=== PATIENT | female | born 1965 | race Caucasian/White ===

== ENCOUNTER 2020-01-17 09:44 | Emergency (ER) | payer OTHER, SELFPAY ==
[2020-01-17 09:45] VITALS: BP 139/90; PULSE 90; RESP 14; TEMP 36.9; O2SAT 100
--- NOTE | 2020-01-17 10:09 | DI.RAD.S_ITS ---
PROCEDURE: XR CHEST 1V INDICATIONS: chest pain TECHNIQUE: One view of the chest was acquired. COMPARISON: None. FINDINGS: Surgical changes and devices: None. Lungs and pleura: Lungs are clear. No pleural effusions or pneumothorax. Mediastinum: Mediastinal contours appear normal. Heart size is normal. Bones and chest wall: No suspicious bony lesions. Mild levoconvex scoliotic curvature is noted. Overlying soft tissues appear unremarkable. IMPRESSION: Portable chest within normal limits. Dictated by: Tay Meza M.D. on 01/17/2020 at 9:29 Approved by: Tay Meza M.D. on 01/17/2020 at 9:30
--- NOTE | 2020-01-17 10:13 | ED_ITS ---
HPI - URI/Sore Throat General Chief Complaint: Upper Respiratory Symptoms Stated Complaint: dry throat x 1 month, pain in neck Time Seen by Provider: 01/17/20 09:49 Source: patient Mode of arrival: Ambulatory Limitations: no limitations History of Present Illness HPI Narrative: Patient is a 54-year-old female who presents with a variety of symptoms. She has had an ongoing sore throat and dry throat for the last 1 month she thinks has gotten progressively worse over the last day or so. Also for the last week she has had arm heaviness more on the left than the right symptoms have come and gone. She feels sometime she has burning in her chest that goes up to her jaw. She denies any shortness of breath with exertion no cough. Last night she had temperature 100.8?. She has nausea but no vomiting. She has significant decrease in appetite secondary to her nausea. Her dad was diagnosed with COVID. 1 month ago he had a routine test for colonoscopy test came back positive but he was retested and it was negative. Everyone else at that time was tested and negative. No other exposure to cover that she knows of. MD Complaint: fever, cough and sore throat Onset (ago): day(s) Related Data Allergies Allergy/AdvReac Type Severity Reaction Status Date / Time Sulfa (Sulfonamide Allergy Unknown Verified 01/17/20 10:11 Antibiotics) Review of Systems Review of Systems ROS Unobtainable: All systems reviewed & are unremarkable except as noted in HPI and below Constitutional Constitutional: Reports anorexia, Reports fatigue, Reports fever(s), Reports headache(s) and Reports poor appetite Eyes Eyes: Denies change in vision, Denies eye discharge, Denies irritation and Denies loss of vision ENT Ears, Nose, Mouth, and Throat: Reports as per HPI, Reports dry mouth, Reports headache(s) and Denies hoarseness Cardiovascular Cardiovascular: Reports chest pain (Burning), Denies irregular heart rhythm, Denies lightheadedness, Denies palpitations, Denies dyspnea, Denies dyspnea on exertion and Denies orthopnea Respiratory Respiratory: Denies cough, Denies dyspnea, Denies dyspnea on exertion and Denies wheezing Gastrointestinal Gastrointestinal: Denies abdominal pain, Denies change in bowel habits, Denies diarrhea, Reports nausea and Denies vomiting Musculoskeletal Musculoskeletal: Denies arthralgias and Reports myalgias Integumentary/Breasts Skin/Breast: Denies pruritus, Denies erythema, Denies rash and Denies wounds Neurologic Neurologic: Reports headache(s) and Denies loss of vision Endocrine Endocrine: Reports fatigue and Denies palpitations Allergic/Immunologic Allergic/Immunologic: Denies wheezing Patient History Medical History Patient denies medical problems (Acute) Surgical History H/O: hysterectomy (Acute) Social History Smoking Status: Former smoker Smoking Status: Former smoker alcohol intake frequency: 0-2 drinks per day Substance Use Type: does not use Exam Initial Vital Signs Initial Vital Signs: Vital Signs Temperature 98.4 F 01/17/20 09:45 Pulse Rate 90 01/17/20 09:45 Respiratory Rate 14 01/17/20 09:45 Blood Pressure 139/90 01/17/20 09:45 Pulse Oximetry 100 01/17/20 09:45 GENERAL: Well-appearing, well-nourished and in no acute distress. HEENT: Head atraumatic,EOMI, pupils reactive, face symmetric, moist mucous membranes PHARYNX: No erythema, no tonsillar exudate, no cervical lymphadenopathy CARDIOVASCULAR: Regular rate and rhythm without murmurs, rubs or gallops. RESPIRATORY: Breath sounds equal bilaterally, no wheezes rales or rhonchi. ABDOMEN: Soft, nontender. Normoactive bowel sounds all 4 quadrants. No guarding or rebound. EXTREMITIES: Normal range of motion, no clubbing or edema. Neurovascularly intact NEUROLOGICAL: Alert and oriented x4.Normal gait and speech. SKIN: Warm, dry, no laceration, no petechiae, no rashes or lesions. Course Orders Ordered: ED Orders 01/17/20 10:09 XR chest 1V Stat 01/17/20 10:23 EKG-12 Lead Stat 01/17/20 11:10 Complete Blood Count AUTO DIFF Stat Comprehensive Metabolic Panel Stat Lipase Stat Troponin & CK Cardiac Panel Stat 01/17/20 12:19 COVID19 -ED/INPAT/OR/L&D Stat Discontinued Medications Sodium Chloride (Normal Saline 0.9%) 1,000 mls @ 150 mls/hr IV CONT SARAH Last Infusion: 01/17/20 13:09 Dose: 0 mls/hr Documented by: Admin: 01/17/20 11:17 Dose: 150 mls/hr Documented by: KADEN Ondansetron HCl (Zofran) 4 mg IV NOW ONE Stop: 01/17/20 10:10 Last Admin: 01/17/20 11:17 Dose: 4 mg Documented by: KADEN Vital Signs Vital signs: Vital Signs - 8 hr 01/17/20 09:45 01/17/20 10:30 01/17/20 11:00 Temperature 98.4 F Pulse Rate 90 74 72 Respiratory Rate 14 21 22 Blood Pressure 139/90 113/72 106/71 Pulse Oximetry 100 100 99 MDM - URI/Sore Throat Lab Data Attestation: I reviewed the patient's lab results. Result diagrams: 01/17/20 11:10 01/17/20 11:10 Labs: Lab Results 01/17/20 01/17/20 01/17/20 Range/Units 11:10 11:10 12:19 WBC 5.1 (4.5-11.0) X10^3/uL RBC 4.20 (4.0-5.2) X10^6/uL Hgb 12.2 (12.0-16.0) g/dL Hct 37.4 (36-46) % MCV 89.2 (80-100) fL MCH 29.1 (26-34) PG MCHC 32.6 (30-36) % RDW 13.1 (11.6-14.8) % Plt Count 414 H (150-400) X10^3/uL Neut % (Auto) 54.2 (50-75) % Lymph % (Auto) 36.4 (25-40) % [place] % (Auto) 7.9 (3-14) % Eos % (Auto) 0.9 L (2-4) % Baso % (Auto) 0.6 (0-2) % Neut # (Auto) 2800 (6151-4548) /uL Lymph # (Auto) 1900 (6098-3525) /uL [place] # (Auto) 400 (0-900) /uL Eos # (Auto) 0 (0-450) /uL Baso # (Auto) 0 (0-100) /uL Sodium 137 (137-145) mmol/L Potassium 4.3 (3.4-5.1) mmol/L Chloride 102 (98-107) mmol/L Carbon Dioxide 32 (22-32) mmol/L BUN 10 (7-17) mg/dL Creatinine 0.62 (0.52-1.04) mg/dL Estimated GFR > 60.0 (>60) mL/min BUN/Creatinine Ratio 16.1 (6-22) Glucose 96 (70-100) mg/dL Calcium 9.7 (8.4-10.2) mg/dL Total Bilirubin 0.7 (0.2-1.3) mg/dL AST 24 (14-36) IU/L ALT 16 (<35) IU/L Alkaline Phosphatase 57 (38-126) U/L Total Creatine Kinase 73 (30-135) U/L CK-MB (CK-2) TNP CK-MB (CK-2) Rel Index TNP Troponin I < 0.012 (0.01-0.034) ng/mL Total Protein 7.8 (6.3-8.2) g/dL Albumin 4.8 (3.5-5.0) g/dL Globulin 3.0 (1.7-4.1) g/dL Albumin/Globulin Ratio 1.6 (1.0-2.8) Lipase 76 (23-300) U/L COVID-19 PCR Negative (Negative) Point of Care Testing Rapid Strep A Negative Urine Dip Bedside Urine Glucose Negative Bedside Urine Bilirubin - Negative Bedside Urine Ketone - Negative Urine Specific Gleason 1.010 Bedside Urine Occult Blood - Negative Bedside Urine pH 6.5 Bedside Urine Protein - Negative Bedside Urine Urobilinogen - Negative Bedside Urine Nitrite - Negative Bedside Urine Leukocytes - Negative Esterase Imaging Data Chest x-ray: Radiologist's Impression: PROCEDURE: XR CHEST 1V INDICATIONS: chest pain TECHNIQUE: One view of the chest was acquired. COMPARISON: None. FINDINGS: Surgical changes and devices: None. Lungs and pleura: Lungs are clear. No pleural effusions or pneumothorax. Mediastinum: Mediastinal contours appear normal. Heart size is normal. Bones and chest wall: No suspicious bony lesions. Mild levoconvex scoliotic curvature is noted. Overlying soft tissues appear unremarkable. IMPRESSION: Portable chest within normal limits. Dictated by: Tay Meza M.D. on 01/17/2020 at 9:29 ECG Data Attestation: I personally reviewed and interpreted this ECG as follows: Interpretation: Normal sinus rhythm rate 71 p.r. interval 143 QRS [address] changes MDM Narrative Medical decision making narrative: Patient has a wide variety of vague symptoms. She does not appear septic her COVID-19 is negative. No source of infection identified at this time. I recommend outpatient follow-up and return as needed. Discharge Plan Departure Patient Disposition: Home Clinical Impression: Acute viral syndrome Discharge Date/Time: 01/17/20 13:09 Instructions: DI for Viral Syndrome Activity Restrictions/Additional Instructions: *You have been diagnosed with viral syndrome *What to do: At this time blood work is overall reassuring. COVID-19 is negative. EKG and blood work for heart got show any abnormality. You may require more cardiac testing with her primary care provider but not indicated today. No need for antibiotic. Recommend resting and staying hydrated *Continue to take medications as directed *Follow up with your primary care provider in 2-3 days *Return to ER if you should have worsening chest pain, arm weakness, fever, difficulty breathing or any new, worsening or concerning symptoms
[2020-01-17 10:30] VITALS: BP 113/72; PULSE 74; RESP 21; O2SAT 100
[2020-01-17 11:00] VITALS: BP 106/71; PULSE 72; RESP 22; O2SAT 99
[2020-01-17] MEDS: SODIUM CHLORIDE 0.9% 1,000 ML 150 ML IV (11:17)
[2020-01-17] MEDS: ONDANSETRON 4 MG/2 ML INJ IV (11:17)
[2020-01-17 11:26] LABS: Add Manual Diff / Slide Review NO; Basophils Absolute Auto 0 /uL (0-100); Basophils Percent Auto 0.6 % (0-2); Eosinophils Absolute Auto 0 /uL (0-450); Eosinophils Percent Auto 0.9 % (2-4); Hematocrit 37.4 % (36-46); Hemoglobin 12.2 g/dL (12.0-16.0); Lymphocytes Absolute Auto 1900 /uL (1100-4500); Lymphocytes Percent Auto 36.4 % (25-40); Mean Corpuscular HGB Conc 32.6 % (30-36); Mean Corpuscular Hemoglobin 29.1 PG (26-34); Mean Corpuscular Volume 89.2 fL (80-100); Monocytes Absolute Auto 400 /uL (0-900); Monocytes Percent Auto 7.9 % (3-14); Neutrophils Absolute Auto 2800 /uL (1500-7000); Neutrophils Percent Auto 54.2 % (50-75); Platelet Count 414 X10^3/uL (150-400); Red Cell Distribution Width 13.1 % (11.6-14.8); White Blood Cell Count 5.1 X10^3/uL (4.5-11.0)
[2020-01-17 11:33] LABS: Alanine Aminotransferase 16 IU/L (<35); Albumin 4.8 g/dL (3.5-5.0); Albumin Globulin Ratio 1.6 (1.0-2.8); Alkaline Phosphatase 57 U/L (38-126); Aspartate Aminotransferase 24 IU/L (14-36); BUN Creatinine Ratio 16.1 (6-22); Bilirubin Total 0.7 mg/dL (0.2-1.3); Blood Urea Nitrogen 10 mg/dL (7-17); Calcium 9.7 mg/dL (8.4-10.2); Carbon Dioxide 32 mmol/L (22-32); Chloride 102 mmol/L (98-107); Creatine Kinase 73 U/L (30-135); Estimated Glomerular Filt Rate > 60.0 mL/min (>60); Glucose 96 mg/dL (70-100); HEMOLYSIS < 15 (0-50); Lipase 76 U/L (23-300); Potassium 4.3 mmol/L (3.4-5.1); Sodium 137 mmol/L (137-145); Total Protein 7.8 g/dL (6.3-8.2)
[2020-01-17 11:44] LABS: Troponin I < 0.012 ng/mL (0.01-0.034)
[2020-01-17 12:43] LABS: COVID19 -Nasal RAPID Negative (Negative)
== END 2020-01-17 13:09 | disposition home or self-care (01) ==
PROVIDERS: Emergency Provider Emergency Medicine
DX: B34.9 Viral infection, unspecified (principal); R50.9 Fever, unspecified; R05 Cough; R07.9 Chest pain, unspecified; R51 Headache
CPT/HCPCS: 36415; 71045; 80053; 81003; 82550; 83690; 84484; 85025; 87635; 87880; 93005; 96361; 96374; 99284; J2405